=== PATIENT | male | born 1950 | race Caucasian/White ===

== ENCOUNTER → 2018-07-29 | Outpatient (CLI) | payer OTHER ==
--- NOTE | 2018-07-29 13:35 | 2DMMODE ---
[place] [address] 2 D/M-MODE ECHOCARDIOGRAM Name: CORRINAAMBER Room: [facility]#: [id number] Admission: 07/29/18 Attend Phys: Henri Duong, Discharge: Date of : 48 Date of Service: 07/29/18 1335 Report #: [id number] THIS REPORT FOR: //name// APPROVED REPORT Study performed: 07/29/2018 11:12:31 EXAM: Comprehensive 2D, Doppler, and color-flow Echocardiogram Patient Location: Out-Patient Status: routine BSA: 2.11 HR: 106 bpm BP: 130/82 mmHg Other Information Study Quality: Good Indications CAD 2D Dimensions IVSd: 12.22 (7-11mm) LVOT Diam: 20.01 (18-24mm) LVDd: 42.27 mm PWd: 10.08 (7-11mm) Ascending Ao: 36.62 (22-36mm) LVDs: 35.78 (25-40mm) Aortic Root: 29.00 mm Volumes Left Atrial Volume (Systole) LA ESV Index: 18.50 mL/m2 Aortic Valve AoV Peak Angel.: 1.88 m/s AO Peak Gr.: 14.13 mmHg LVOT Max P.96 mmHg AO Mean Gr.: 8.08 mmHg LVOT Mean P.52 mmHg LVOT Max V: 0.86 m/s AO V2 VTI: 32.47 cm LVOT Mean V: 0.57 m/s CHACORTA (VTI): 1.68 cm2 LVOT V1 VTI: 17.35 cm Mitral Valve E/A Ratio: 0.66 MV Decel. Time: 227.91 ms MV E Max Angel.: 0.83 m/s MV PHT: 66.09 ms MVA (PHT): 3.33 [place] [address] 2 D/M-MODE ECHOCARDIOGRAM Name: AMBER HOUSER Room: [facility]#: [id number] Admission: 07/29/18 Attend Phys: Henri Duong, Discharge: Date of : 48 Date of Service: 07/29/18 1335 Report #: [id number] TDI E/Lateral E': 10.38 E/Medial E': 11.86 Medial E' Angel.: 0.07 m/s Lateral E' Angel.: 0.08 m/s Pulmonary Valve PV Peak Angel.: 0.85 m/s PV Peak Gr.: 2.89 mmHg Tricuspid Valve RAP Estimate: 5.00 mmHg TR Peak Gr.: 23.78 mmHg RVSP: 28.78 mmHg PA Pressure: 28.78 mmHg Left Ventricle The left ventricle is normal size. There is normal LV segmental wall motion. There is normal left ventricular wall thickness. Left ventricular systolic function is normal. The left ventricular ejection fraction is within the normal range. LVEF is 55-60%. Grade I - abnormal relaxation pattern. Right Ventricle The right ventricle is normal size. The right ventricular systolic function is normal. Atria The left atrium size is normal. The right atrium size is normal. Aortic Valve Aortic valve is mildly calcified. Trace aortic regurgitation. There is no aortic valvular stenosis. Mitral Valve Mitral valve leaflets are mildly thickened. Mild mitral regurgitation. No evidence of mitral valve stenosis. Tricuspid Valve The tricuspid valve is normal in structure. Mild tricuspid regurgitation. Pulmonic Valve The pulmonary valve is normal in structure. There is no pulmonic [place] [address] 2 D/M-MODE ECHOCARDIOGRAM Name: CORRINAAMBER Room: [facility]#: [id number] Admission: 07/29/18 Attend Phys: Henri Duong, Discharge: Date of : 48 Date of Service: 07/29/18 1335 Report #: [id number] Great Vessels The aortic root is normal in size. IVC is not well visualized. Pericardium There is no pericardial effusion. <Conclusion> LVEF is 55-60%. Aortic valve is mildly calcified. <ELECTRONICALLY SIGNED> By: Mark Martell MD, FAC 07/29/18 1335 1335 1335 Mark Martell MD, [facility] /INF
--- NOTE | 2018-07-29 17:13 | CARDNUC ---
[place] [address] CARDIAC NUCLEAR IMAGING REPORT Name: CORRINAAMBER G Room: [facility]#: [id number] Admission: 07/29/18 Attend Phys: Henri Duong, Discharge: Date of : 48 Date of Service: 07/29/18 1712 Report #: [id number] THIS REPORT FOR: //name// APPROVED REPORT Imaging Protocol: Rest Tc-99m/Stress Tc-99m 1 day Study performed: 07/29/2018 13:00:00 Indication: Chest pain, Dyspnea Patient Location: Out-Patient Stress Tech: Cuca Llamas Stress Nurse: Ana Cordon RN NM Tech:PARESH Rangel Ht: 6 ft 0 in Wt: 195 lbs BSA: 2.11 m2 BMI: 26.44 Medical History Medical History: Angina, SOB, CAD s/p [place], CAD s/p CABG, CAD s/p stent, Current Smoker, Fatigue, HTN, Hyperlipidemia. Medications: Metoprolol, ASA 81 mg, Atorvastatin, MG. Allergies: No known drug allergies Cardiac Risk Factors: Age, Current Smoker, HTN, Hyperlipidemia, SOB. Previous Cardiac Procedures: CABG, Myocardial infarction, PCI Pretest Chest Pain Characteristics: No chest pain Exercise History: Sedentary Physical Disabilities: Arthritis, weak legs, SOA. Meds Held (24 hrs): Metoprolol Resting Data Rest SPECT myocardial perfusion imaging was performed in supine position 30 minutes following the intravenous injection of 11.9 mCi of Tc-99m Sestamibi. Time of rest injection: 1340 Date: 07/29/2018 Time of rest imagin The images were gated to evaluate regional wall motion and calculate left ventricular ejection fraction. Administration Route: IV Administration Site: Left AC Pharmacologic Stress Pharmacologic stress test was performed by injecting Regadenoson 0.4 [place] [address] CARDIAC NUCLEAR IMAGING REPORT Name: AMBER HOUSER Room: [facility]#: [id number] Admission: 07/29/18 Attend Phys: Henri Duong, Discharge: Date of : 48 Date of Service: 07/29/18 1712 Report #: [id number] 10-15 seconds immediately followed by the intravenous injection of 33.2 mCi of Tc-99m Sestamibi. Time of stress injection: 1520 Time of stress imagin Administration Route: IV Administration Site: Left AC Gated Stress SPECT was performed 40 minutes after stress injection. The images were gated to evaluate regional wall motion and calculate left ventricular ejection fraction. Prone imaging was performed. Stress Test Details Stress Test: Pharmacologic stress testing performed using 0.4 mg of regadenoson per 5 mL given IV over 10 seconds. Reason for pharmacologic stress test: physical limitation, arthritis, weak legs.. 60 mg caffeine given for headache, dizziness, Tachycardia.. HR Max Heart Rate (APMHR): 151 bpm Resting HR: 97 bpm Target HR (85% APMHR): 128 bpm Max HR Achieved: 138 bpm % of APMHR: 91 Recovery HR: 125 bpm HR response to stress: Normal HR response to stress BP Resting BP: 124/84 mmHg Max BP: 131/88 mmHg Recovery BP: 124/86 mmHg BP response to stress: Normal blood pressure response to stress. ECG Resting ECG: nsr Stress ECG: nsr pvcs ST Change: negative Arrhythmia: negative Recovery ECG: nsr Clinical Reason for Termination: Completed protocol Stress Symptoms: Headache, Lightheaded, difficulty getting HR below 120's BPM. Exercise duration: 0 min 0 sec Exercise capacity: 1.00 [place] [address] CARDIAC NUCLEAR IMAGING REPORT Name: AMBER HOUSER Room: [facility]#: [id number] Admission: 07/29/18 Attend Phys: Henri Duong, Discharge: Date of : 48 Date of Service: 07/29/18 1712 Report #: [id number] Nurse Comments 68 year old male presented with recented CP/SOA/Tachycardia. Patient stated his arthritis limited him from walking with any speed or incline. Patient tolerated sitting Lexiscan well with minimal symptoms. HR in recovery maintained in the 120's BPM. 60 MG IV caffeine administered at 14:00 into recovery for help with headache, SOA and heartrate. Heartrate continued in 120's. Dr. Martell notified of Tachycardia. Dr. Martell cleared patient to go to Nuclear Medicine for images and to resume his Metoprolol as soon as he gets home. Patient escorted by staff to Nuclear Medicine for images. Patient stable with no complaints at that time. Stress ECG Conclusion negative Study Quality Study: Good Artifact: Mild Increased GI uptake Lung Uptake: Normal Perfusion STRESS SPECT images show a small mild intensity inferior defect which is noted to be fixed when compared to the SPECT rest images. There is uniform uptake of tracer in all other segments. The prone set shows normalization of the inferior defect indicating it is likely artifact. No reversible defects are seen. Wall Motion normal all motion Nuclear Conclusion ECG Findings: negative for ischemia Clinical Findings: negative for ischemia Nuclear Findings: negative for ischemia Exercise Capacity: not assessed Left Ventricular Function: normal Risk Study: low Nuclear stress test negative for ischemia or infarct. The inferior defect [place] [address] CARDIAC NUCLEAR IMAGING REPORT Name: AMBER HOUSER Room: [facility]#: [id number] Admission: 07/29/18 Attend Phys: Henri Duong, Discharge: Date of : 48 Date of Service: 07/29/18 1712 Report #: [id number] <Conclusion> negative <ELECTRONICALLY SIGNED> By: Karan Muller MD, FACC 07/29/181711 11 11 Karan Muller MD, FACC /INF
== END ==
LOC: M.NUC 07-10 08:00 → M.CRD 11:03 → M.NUC 14:00
DX: I25.10 Atherosclerotic heart disease of native coronary artery without angina pectoris (principal); R06.09 Other forms of dyspnea

== ENCOUNTER 2020-03-05 14:08 | Inpatient (IN) | payer OTHER ==
[~2020-03-05] VITALS: Ht 182.9 cm; Wt 87.5 kg
--- NOTE | ~2020-03-05 | OP ---
[address] [address] OPERATIVE REPORT Name: CORRINAAMBER G Room: [address]#: [id number] Admission: 03/05/20 Attend Phys: Dk Toussaint MD Discharge: 03/09/20 Date of : 48 Report #: [id number] THIS REPORT FOR: //name// cc: Jason Barros MD, Anthony MD ~ CC: Jason Toussaint DICTATED BY: Nick Potter DO DATE OF SERVICE: 03/05/2020 Nick Potter DO, PGY4, dictating for Hernan Fernandes DO PREOPERATIVE DIAGNOSIS: Strangulated ventral hernia. POSTOPERATIVE DIAGNOSIS: Strangulated ventral hernia with high-grade small bowel obstruction. PRIMARY SURGEON: Hernan Fernandes DO CO-SURGEON: Nick Potter DO, PGY4 REFUGE WORKER: None. OPERATION PERFORMED: Ventral hernia repair with mesh. ANESTHESIA: General and local. ESTIMATED BLOOD LOSS: 20 mL. SPECIMEN: Hernia sac and omentum. COMPLICATIONS: None. INDICATIONS FOR PROCEDURE: The patient is a pleasant 70-year-old male with past history of coronary artery disease, status post multiple cardiac stents, CABG x 4, COPD, emphysema with pulmonary bullae and alcohol abuse. The patient has a known to him incisional hernia just superior to the umbilicus after having laparoscopic cholecystectomy years ago, reported since Sunday for the past 3 days of severe nausea and vomiting that has been intractable and he has been unable to keep down any p.o. intake. Hernia has always been incarcerated, but has been more firm and swollen. He came in for further evaluation and was found to have a loop of small bowel contained within the ventral hernia causing with high-grade obstruction with concern for strangulation. We recommended proceeding to the OR for emergent hernia repair [place] [address] OPERATIVE REPORT Name: AMBER HOUSER Room: [address] IN [facility]#: [id number] Admission: 03/05/20 Attend Phys: Dk Toussaint MD Discharge: 03/09/20 Date of : 48 Report #: [id number] possible bowel resection. Full discussion of procedure, alternatives, risks and possible complications were discussed, include but not limited to bleeding, infection, postoperative pain, scarring, hernia recurrence, mesh complications, injury to other underlying abdominal organs, mesh removal, additional surgery, difficult extubation, prolonged intubation in the ICU for wound healing, anesthesia risks, cardiopulmonary arrest, and even as well as general anesthesia risks. The patient voiced understanding of these risks and agreed to proceed with surgery. OPERATIVE TECHNIQUE: The patient was again seen and examined in the preoperative holding. Fully informed written consent was obtained. Preoperative antibiotics, 2 g Ancef were given. The patient was then transported to the operating room suite and placed on the operating table in a supine position. At this time, Anesthesia induced general anesthesia via endotracheal intubation. This was successful. Arms were outstretched on the arm board. All extremities were padded and protected. Safety strap was placed across the patient's lap. Grounding pad was placed in the right lateral thigh. Nicolas catheter was placed. All extremities and joints were padded and protected. Upper extremity Gita Hugger was placed across the patient's chest. He was then prepped and draped using standard sterile fashion after his abdominal hair was trimmed with an elective vasquez. Once the 30 minutes was allowed for the chlorhexidine to dry, the patient was prepped and draped and timeout was performed prior to the onset of the procedure. All present were in agreement. We began by making a vertical paramedian incision just left of midline over the patient's previous laparoscopic incisional scar. We dissected down through dermal and subcutaneous tissue using electrocautery and blunt graspers until we reached the hernia sac. The hernia sac was then dissected out circumferentially and freed from the subcutaneous and fascial attachments. Once the hernia sac was fully dissected out as were the fascial edges, a relaxing incision was made at the superior aspect of the hernia or the cephalad portion. After the relaxing fascial incision was made, Metzenbaum scissors were used to enter into the base of the hernia sac. The hernia sac was then divided in half. There was noted to be strangulated, noncompromised bowel. The bowel was dusky dark red in appearance, but quickly perked up after the omental and fascial band causing obstruction was released. We observed the bowel for several minutes, which became very pink with some hypoactive peristalsis. The bowel was then placed and reduced back into the abdomen. There was a small portion of omentum at the caudal aspect of the hernia attached to the hernia sac that was compromised and was black in appearance. This was transected with the hernia sac and sent to pathology. The fascial edges were grasped with the bilateral Kochers; left and right, like right sides and a 6.4-cm Ventrio ST Hernia mesh was opened on the back table and placed into the abdomen and with the strap in a vertical orientation. The mesh was then sewn in place in the 4 corners using 0 Prolene. Once the mesh was sewn in place, the fascial defect was closed incorporating mesh using interrupted [id number] 0 Prolene sutures. Once the fascia was completely closed, the subcutaneous tissue [place] [address] OPERATIVE REPORT Name: CORRINAAMBER Room: [address]#: [id number] Admission: 03/05/20 Attend Phys: Dk Toussaint MD Discharge: 03/09/20 Date of : 48 Report #: [id number] normal saline and dried. A layered closure was then performed of the subcutaneous and deep dermal layers using 3-0 interrupted Vicryl and the skin was closed using a running subcuticular 4-0 Monocryl. A 30 mL of 0.5% Marcaine were injected for local anesthetic. Dermabond skin glue was then placed for dressing. The patient was extubated in the OR. Abdominal binder was placed and he was transported to the PACU in stable condition. After brief recovery from the anesthesia, he will be admitted to the floor for ongoing care. Of note, Anesthesia placed an NG tube towards the conclusion of the operation with almost 250 mL of gastric fluid drained into the canister. He will continue NG tube to low intermittent suction, pending resolution of postoperative expected ileus. By: 2225 2301Adonovan Fernandes DO /nt
[2020-03-05 14:21] VITALS: BP 129/99
[2020-03-05 14:45] LABS: ABSOLUTE BASOPHILS 0.1 thou/uL (0.0-0.2); ABSOLUTE LYMPHOCYTES 1.3 thou/uL (0.8-5.3); ABSOLUTE MONOCYTES 1.6 thou/uL (0.0-1.2); ABSOLUTE NEUTROPHILS 15.6 thou/uL (1.6-8.1); BASOPHILS 0.8 %; HEMATOCRIT 52.3 % (42.0-52.0); HEMOGLOBIN 18.3 gm/dL (14.0-18.0); LYMPHOCYTES 7.1 %; MCH 33.3 pg (26.0-34.0); MCHC 34.9 g/dL (28.0-37.0); MCV 95.3 fL (80.0-100.0); MONOCYTES 8.5 %; MPV 9.4 fl. (7.2-11.1); NUCLEATED RBCS 0 /100WBC; PLATELET COUNT* 325 thou/uL (150-400); POLYS 83.6 %; RBC 5.49 mil/uL (4.50-6.00); RDW-CV 13.6 % (10.5-14.5); WBC 18.7 thou/uL (4.0-11.0)
[2020-03-05 14:49] LABS: CALCIUM 9.5 mg/dL (8.5-10.1); POTASSIUM 4.1 mmol/L (3.5-5.1)
[2020-03-05 14:51] LABS: APTT 26.4 Seconds (25.0-31.3); INR 1.1; PROTIME 11.4 Seconds (9.20-11.50)
[2020-03-05 14:54] LABS: ALBUMIN 4.4 g/dL (3.4-5.0); TOTAL BILIRUBIN 1.1 mg/dL (<0.1-1.0); TOTAL PROTEIN 9.5 g/dL (6.4-8.2)
--- NOTE | 2020-03-05 15:07 | EKG ---
[place] [address] ELECTROCARDIOGRAM REPORT Name: AMBER HOUSER Room: [facility]#: [id number] Admission: 03/05/20 Attend Phys: Discharge: Date of : 48 Date of Service: 03/05/20 1419 Report #: [id number] THIS REPORT FOR: //name// 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1950 Requested By: Rocky Marie Order Number: [id number] MD: Mark Martell Measurements Intervals [place] Rate: 170 P: 11 [place]: 93 QRS: -23 QRSD: 94 T: 104 QT: 303 QTc: 510 Interpretive Statements Supraventricular tachycardia Borderline left axis deviation Abnormal R-wave progression, early transition Repolarization abnormality, prob rate related No previous ECG available for comparison Electronically Signed On 03-05-2020 15:07:50 CDT by Mark Martell [email or web address] <ELECTRONICALLY SIGNED> By: Mark Martell MD, [facility] 03/05/20 1507 1419 1419 Mark Martell MD, [facility] /EPI
[2020-03-05 20:17] VITALS: BP 124/81
[2020-03-05 23:45] VITALS: BP 103/70
[2020-03-06 04:30] VITALS: BP 101/70
[2020-03-06 04:56] LABS: HEMATOCRIT 43.3 % (42.0-52.0); MCHC 34.3 g/dL (28.0-37.0); MCV 96.5 fL (80.0-100.0); MPV 9.5 fl. (7.2-11.1); NUCLEATED RBCS 0 /100WBC; RBC 4.49 mil/uL (4.50-6.00); RDW-CV 13.3 % (10.5-14.5); WBC 12.9 thou/uL (4.0-11.0)
[2020-03-06 05:13] LABS: HEMOGLOBIN 14.8 gm/dL (14.0-18.0); PLATELET COUNT* 240 thou/uL (150-400)
[2020-03-06 05:27] LABS: ALBUMIN 3.2 g/dL (3.4-5.0); CALCIUM 7.6 mg/dL (8.5-10.1); CREATININE 1.6 mg/dL (0.6-1.3); MAGNESIUM 1.4 mg/dL (1.8-2.4); POTASSIUM 3.8 mmol/L (3.5-5.1); TOTAL BILIRUBIN 0.8 mg/dL (<0.1-1.0); TOTAL PROTEIN 7.1 g/dL (6.4-8.2)
[2020-03-06 06:57] LABS: ABSOLUTE LYMPHOCYTES 0.5 thou/uL (0.8-5.3); ABSOLUTE MONOCYTES 1.4 thou/uL (0.0-1.2)
[2020-03-06 06:58] LABS: PLATELET ESTIMATE ADEQUATE
[2020-03-06 08:00] VITALS: BP 124/77
[2020-03-06 20:00] VITALS: BP 141/90
[2020-03-06] MEDS ORDERED: KAPSPARGO SPRIN25 MG PO (21:32)
[2020-03-06] MEDS ORDERED: ASA81BEC PO (21:33)
[2020-03-06] MEDS ORDERED: LIPITOR40 MG PO (21:34)
[2020-03-06] MEDS ORDERED: OMEPRAZOLE40 MG PO (21:35)
[2020-03-06] MEDS ORDERED: FLOMAX0.4 MG PO (21:36)
[2020-03-06] MEDS ORDERED: ANORO ELLIPTA1 EACH IH (21:37)
[2020-03-07] VITALS (7 sets, daily range): BP systolic 106–172; BP diastolic 73–87
[2020-03-07 05:54] LABS: ABSOLUTE LYMPHOCYTES 0.7 thou/uL (0.8-5.3); ABSOLUTE MONOCYTES 1.2 thou/uL (0.0-1.2); ABSOLUTE NEUTROPHILS 5.6 thou/uL (1.6-8.1); BASOPHILS 0.1 %; EOSINOPHILS 0.1 %; HEMATOCRIT 42.2 % (42.0-52.0); HEMOGLOBIN 14.6 gm/dL (14.0-18.0); LYMPHOCYTES 9.5 %; MCH 33.5 pg (26.0-34.0); MCHC 34.6 g/dL (28.0-37.0); MCV 96.7 fL (80.0-100.0); MONOCYTES 16.2 %; MPV 9.7 fl. (7.2-11.1); NUCLEATED RBCS 0 /100WBC; PLATELET COUNT* 214 thou/uL (150-400); POLYS 74.1 %; RBC 4.36 mil/uL (4.50-6.00); RDW-CV 13.3 % (10.5-14.5); WBC 7.6 thou/uL (4.0-11.0)
[2020-03-07 06:09] LABS: CREATININE 1.3 mg/dL (0.6-1.3); POTASSIUM 3.1 mmol/L (3.5-5.1); TOTAL BILIRUBIN 1.2 mg/dL (<0.1-1.0)
[2020-03-08] VITALS: BP 120/76
[2020-03-08 04:00] VITALS: BP 130/88
[2020-03-08 04:49] LABS: HEMATOCRIT 38.8 % (42.0-52.0); HEMOGLOBIN 13.6 gm/dL (14.0-18.0); MCH 33.6 pg (26.0-34.0); MCV 95.8 fL (80.0-100.0); MPV 9.9 fl. (7.2-11.1); RBC 4.05 mil/uL (4.50-6.00); RDW-CV 13.2 % (10.5-14.5); WBC 7.4 thou/uL (4.0-11.0)
[2020-03-08 05:11] LABS: ALBUMIN 2.8 g/dL (3.4-5.0); CALCIUM 7.1 mg/dL (8.5-10.1); MAGNESIUM 1.6 mg/dL (1.8-2.4); PHOSPHORUS* 0.9 mg/dL (2.5-4.9); POTASSIUM 3.3 mmol/L (3.5-5.1); TOTAL BILIRUBIN 1.4 mg/dL (<0.1-1.0); TOTAL PROTEIN 6.7 g/dL (6.4-8.2)
[2020-03-08 08:00] VITALS: BP 129/90
[2020-03-08 15:21] VITALS: BP 125/86
--- NOTE | 2020-03-08 17:37 | EKG ---
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1950 Requested By: Dk Toussaint Order Number: [id number] Reading MD: Henri Duong Measurements Intervals [place] Rate: 93 P: 35 [place]: 130 QRS: -18 QRSD: 98 T: 171 QT: 451 QTc: 562 Interpretive Statements Sinus tachycardia Atrial premature complexes Left axis deviation Abnrm T, consider ischemia, anterolateral lds Prolonged QT interval Compared to ECG 03/05/2020 14:19:10 Atrial premature complex(es) now present RSR' in V1 or V2 now present Possible ischemia now present Prolonged QT interval now present Supraventricular tachycardia no longer present Early repolarization no longer present Electronically Signed On 03-08-2020 17:36:54 CDT by Henri Duong [email or web address] <ELECTRONICALLY SIGNED> By: Henri Duong MD, [facility] 03/08/20 1736 8 8 Henri Duong MD, [facility] /EPI
[2020-03-08 18:57] VITALS: BP 117/79
[2020-03-08 20:00] VITALS: BP 136/91
[2020-03-09] VITALS: BP 119/77
[2020-03-09 04:00] VITALS: BP 127/79
[2020-03-09 04:59] LABS: HEMATOCRIT 40.3 % (42.0-52.0); HEMOGLOBIN 14.3 gm/dL (14.0-18.0); MCHC 35.5 g/dL (28.0-37.0); MPV 9.7 fl. (7.2-11.1); RBC 4.2 mil/uL (4.50-6.00); RDW-CV 13.4 % (10.5-14.5); WBC 9.8 thou/uL (4.0-11.0)
[2020-03-09 05:26] LABS: ALBUMIN 2.9 g/dL (3.4-5.0); CALCIUM 7.8 mg/dL (8.5-10.1); TOTAL BILIRUBIN 1.2 mg/dL (<0.1-1.0); TOTAL PROTEIN 7.3 g/dL (6.4-8.2)
[2020-03-09 05:28] LABS: POTASSIUM 3.4 mmol/L (3.5-5.1)
[2020-03-09 07:30] VITALS: BP 120/81
[2020-03-09] MEDS ORDERED: OXYCODONE HCL 55 MG PO ×2 (11:17→11:18)
[2020-03-09] MEDS ORDERED: AUGMENTIN 875-1 EACH PO (11:43)
[2020-03-09 12:00] VITALS: BP 158/88
[2020-03-09 14:01] VITALS: BP 158/88
--- NOTE | 2020-03-09 16:01 | EKG ---
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1950 Requested By: Noel Haile Order Number: [id number] Rose Mary MD: Adolph Puente Measurements Intervals [place] Rate: 94 P: 39 MT: 123 QRS: -12 QRSD: 95 T: 15 QT: 374 QTc: 468 Interpretive Statements Sinus rhythm Atrial premature complex Borderline repolarization abnormality Compared to ECG 03/06/2020 02:59:01 Possible ischemia no longer present Prolonged QT interval no longer present Electronically Signed On 03-09-2020 16:00:59 CDT by Adolph Puente [email or web address] <ELECTRONICALLY SIGNED> By: Adolph Puente MD, FACC 03/09/20 1600 1345 1345 Adolph Puente MD, FAC /EPI
--- NOTE | 2020-03-10 11:08 | PATH ---
[address] [address] PATHOLOGY RPT PROCEDURE Name: RADAMES SMITH Room: [address] IN ..#: [id number] Admission: 03/05/20 Date of : 48 Discharge: 03/09/20 Report #: [id number] Path Case #: [id number] [facility] Accession Number: [id number] . 01 Material submitted: . hernia - HERNIA SAC AND OMENTUM . 01 Clinical history: . SBO, VENTRAL HERNIA WITH OBSTRUCTION, STRANGULATED HERNIA, COMPLETE BOWEL OBSTRUCTION . 02 Diagnosis: Hernia sac and omentum: - Benign mesothelial-lined fibromembranous/fibrofatty tissue and benign omental fat with fresh hemorrhage. . (BRANDY:eugenia; 03/09/2020) [facility] 03/09/2020 1708 Local . 02 Electronically signed: . Nahum Massey MD, Pathologist NPI- [id number] . 01 Gross description: . The specimen is received in formalin, labeled "Radames Smith, hernia sac and omentum". Received is a segment of fibromembranous tissue measuring 8.1 x 3.8 x 1.1 cm in greatest dimensions. No distinct nodules or lesions are noted grossly. The specimen is submitted representatively in cassette A1. . Also received within the specimen container is a segment of yellow-blanc omentum measuring 7.9 x 3.2 x 0.7 cm in greatest dimensions. No distinct nodules or lesions are noted grossly. The specimen is submitted representatively in cassette A2. (CAA; 03/08/2020) [facility]/QAC 03/08/2020 1624 Local . 02 Pathologist provided ICD-10: K43.9 . 02 CPT . 610240, 548618 Specimen Comment: A courtesy copy of this report has been sent to [phone] Specimen Comment: [id number], Specimen Comment: Report sent to ,DR GARRISON / DR BARRAGAN Performed at: [address] [place] [address] PATHOLOGY RPT PROCEDURE Name: RADAMES SMITH Room: [address] IN M.R.#: [id number] Admission: 03/05/20 Date of : 48 Discharge: 03/09/20 Report #: [id number] Path Case #: [id number] [address] [facility] [address], [place]ae [place], [place] [id number] MD Cameron Chambers MD Phone: [phone] Performed at: 02 [facility] [address], [place] [id number] MD Nahum Massey MD Phone: [phone]
== END 2020-03-09 14:25 | disposition home or self-care (01) | DRG 353 ==
LOC: M.ERS 14:08 → M.2W 17:02 → M.TBA-ER 17:02 → M.2W 23:51
PROVIDERS: Family Medicine; Surgery; ADMIT Internal Medicine; ATTEND Internal Medicine
PROC: 0WUF0JZ Supplement Abdominal Wall with Synthetic Substitute, Open Approach (ICD-10-PCS; principal; 2020-03-05)
PROC: 0D9670Z Drainage of Stomach with Drainage Device, Via Natural or Artificial Opening (ICD-10-PCS; principal; 2020-03-05)
DX: K43.6 Other and unspecified ventral hernia with obstruction, without gangrene (principal); N17.0 Acute kidney failure with tubular necrosis; R65.11 Systemic inflammatory response syndrome (SIRS) of non-infectious origin with acute organ dysfunction; J96.11 Chronic respiratory failure with hypoxia; I47.1 Supraventricular tachycardia; F17.210 Nicotine dependence, cigarettes, uncomplicated; F10.10 Alcohol abuse, uncomplicated; E78.5 Hyperlipidemia, unspecified; I10 Essential (primary) hypertension; Z20.828 Contact with and (suspected) exposure to other viral communicable diseases; E86.1 Hypovolemia; E87.6 Hypokalemia; J43.9 Emphysema, unspecified; I25.10 Atherosclerotic heart disease of native coronary artery without angina pectoris; Z95.1 Presence of aortocoronary bypass graft; Z95.5 Presence of coronary angioplasty implant and graft; Z90.49 Acquired absence of other specified parts of digestive tract

== ENCOUNTER → 2020-07-13 | Outpatient (CLI) | payer OTHER ==
[~2020-07-13] MED LIST: ANORO ELLIPTA1 EACH IH; ASA81BEC PO; AUGMENTIN 875-1 EACH PO; CENTRUM SILVER1 EAC4 PO; FLECAINIDE ACE100 MG PO; FLOMAX0.4 MG PO; KAPSPARGO SPRIN25 MG PO; LIPITOR40 MG PO; METOPROLOL SUC200 MG PO; NITROGLYCERIN0.4 MG SUBLING; OMEPRAZOLE40 MG PO; OXYCODONE HCL 55 MG PO; TYLENOL325 M1 PO; VENTOLIN HFA 1818 GM INH
[2020-07-13 12:56] LABS: HEMATOCRIT 44.1 % (42.0-52.0); HEMOGLOBIN 15.2 gm/dL (14.0-18.0); MCH 31.9 pg (26.0-34.0); MCHC 34.4 g/dL (28.0-37.0); MCV 92.6 fL (80.0-100.0); MPV 8.4 fl. (7.2-11.1); RBC 4.76 mil/uL (4.50-6.00); RDW-CV 14.1 % (10.5-14.5); WBC 7.7 thou/uL (4.0-11.0)
[2020-07-13 13:03] LABS: CALCIUM 9.8 mg/dL (8.5-10.1); CREATININE 1.5 mg/dL (0.6-1.3); POTASSIUM 4.8 mmol/L (3.5-5.1)
== END ==
LOC: M.LAB 07-12 14:17
PROVIDERS: ATTEND Surgery
DX: Z01.812 Encounter for preprocedural laboratory examination (principal); Z20.822 Contact with and (suspected) exposure to COVID-19; K40.90 Unilateral inguinal hernia, without obstruction or gangrene, not specified as recurrent

== ENCOUNTER 2020-07-20 08:33 | Inpatient (IN) | payer OTHER ==
[~2020-07-20] VITALS: Ht 182.9 cm; Wt 92.3 kg
--- NOTE | ~2020-07-20 | OP ---
[address] [address] OPERATIVE REPORT Name: AMBER HOUSER Room: [address] M.R.#: [id number] Admission: 07/20/20 Attend Phys: Hernan Fernandes DO Discharge: Date of : 48 Report #: [id number] THIS REPORT FOR: cc: Jason Barros MD, Anthony MD ~ Hernan Fernandes DO DICTATED BY: Feliberto Page DO DATE OF SERVICE: 07/20/2020 PRIMARY CARE PHYSICIAN: Jason Barros MD PREOPERATIVE DIAGNOSIS: Recurrent ventral hernia. POSTOPERATIVE DIAGNOSIS: Recurrent ventral hernia. SURGEON: Hernan Fernandes DO CO-SURGEON: Feliberto Page DO, PGY-4. CLINICAL CODER: Lauren Farfan MS3. OPERATION PERFORMED: Recurrent ventral hernia repair with mesh. ANESTHESIA: General. ESTIMATED BLOOD LOSS: 50 mL. SPECIMENS REMOVED: Hernia sac. IMPLANTS: 11 x [address] mesh. HISTORY OF PRESENT ILLNESS: The patient is a 70-year-old male with history of ventral hernia repair after a few years. He noticed a recurrent bulge in this area. We discussed the need for repair. Risks, benefits, and alternatives discussed at length and agreed to proceed with surgery. DESCRIPTION OF PROCEDURE: After consent was obtained, the patient was taken to the operating room and placed in the supine position. SCDs applied to bilateral lower extremities, safety belt placed across the patient's waist. Two grams Ancef given for surgical prophylaxis. General endotracheal anesthesia was administered without any complication. The patient's abdomen was prepped and draped in standard sterile fashion. Timeout was performed to confirm the patient and procedure. A 10 blade scalpel was used to make an elliptical incision around his previous incision. Previous scar was excised. [address] [address] OPERATIVE REPORT Name: CORRINAAMBER Alice Room: [address] Obdulio Bocanegra#: [id number] Admission: 07/20/20 Attend Phys: Hernan Fernandes DO Discharge: Date of : 48 Report #: [id number] Electrocautery was used for hemostasis and dissected down to the level of hernia sac once the hernia sac was encountered, we elected to enter the hernia sac as this defect was quite large. The hernia sac was dissected off the edges of the fascia using electrocautery. Fascial edges were cleared off from subcutaneous tissue using electrocautery, once our fascial edges were completely clear, hernia defect measured about 5 x 5 cm, we then elected to place an 11 x [address] mesh. This was placed into the abdomen. We elected to close the fascia in a horizontal fashion. The mesh was secured in all cardinal points using stitches of 0 Prolene. The mesh was then circumferentially tacked to the underside of the fascia. The fascia was then closed over top of the mesh using a running 0 Prolene, taking care to incorporate the mesh with each bite, once the hernia defect was completely repaired, subcutaneous tissue was carefully closed down in a layered closure after we placed a 15-Israeli Yoni drain in the subcutaneous tissue. Skin was reapproximated with running 4-0 Monocryl. All instrument, needle and sponge counts were correct x 2 at the end of the case. The patient tolerated the procedure well and was awoken from general anesthesia and transferred to PACU in stable condition. By: 1305 1734Adonovan Fernandes DO /sujata
[2020-07-20 17:08] VITALS: BP 114/65
[2020-07-20 19:30] VITALS: BP 129/87
[2020-07-21] VITALS: BP 139/86
--- NOTE | 2020-07-21 02:19 | NUR ---
PATIENT HAS REMAINED ALERT AND ORIENTED X 4 THROUGHOUT THE SHIFT AND RESTING QUIETLY ON HOURLY ROUNDS. HAS NOT GOTTEN OUT OF BED THIS SHIFT. ABLE TO MOVE SELF IN BED. DRESSING TO ABDOMEN HAS REMAINED CLEAN AND DRY WITH ABDOMINAL BINDER INTACT. Q2H DEEP BREATHING WITH COUGH ENCOURAGED WITH PILLOW ABDOMINAL SPLINT. KANG DRAIN WITH MIN AMOUNTS SEROSANGUINEOUS DRAINAGE. PATIENT'S 02 NEEDS TO MAINTAIN 02 SAT >/= 92% AT 6L/MIN. CONTINUOUS CAPNOGRAPHY. MEDICATED FOR PAIN X 3 OF THIS WRITING TO GOOD EFFECT. VOIDS PER URINAL IN ADEQUATE AMOUNTS. ICE CHIPS AND WATER WITHOUT NAUSEA. CONTINUE TO MONITOR.
[2020-07-21 04:00] VITALS: BP 139/91
--- NOTE | 2020-07-21 06:59 | NUR ---
PATIENT CONTINUES TO REQUIRE 6L/MIN 02 TO KEEP O2 SATS >92%. SURGERY HAS SEEN PATIENT AND ENCOURAGING IS. NO OTHER CHANGES FROM EARLIER END OF SHIFT NOTE.
[2020-07-21 08:00] VITALS: BP 139/91
--- NOTE | 2020-07-21 08:46 | NUR ---
CM SPOKE TO THE PT TO COMPLETE CM ASSESSMENT. PT A&O, NORMALLY INDEPENDENT WITH ADL'S, AND DRIVES. PT USES 0 DME. PT HAS 0 HX OF HH OR SNF. PT CURRENTLY ON 4L OXYGEN, AND DOES NOT HAVE HOME O2. CM WILL REMAIN AVAILABLE TO ASSIST AND FOLLOW NEEDED.
[2020-07-21 11:39] VITALS: BP 132/77
[2020-07-21 15:26] VITALS: BP 106/79
[2020-07-21 20:20] VITALS: BP 115/73
[2020-07-22 01:17] VITALS: BP 121/75
[2020-07-22 04:39] VITALS: BP 158/78
[2020-07-22 08:43] VITALS: BP 128/79
--- NOTE | 2020-07-22 09:44 | NUR ---
PATIENT HAS SLEPT OFF AND ON DURING THE NIGHT, BUT IS VERY SOA UPON EXERTION. VSS ON 6L 02 VIA NASAL CANNULA. LUNGS ARE VERY COARSE, WHEEZY AND WET SOUNDING IN THE AM. 02 SATURATION DROPPED FOR A BIT AND RESPIRATORY CALLED AND NOTIFIED AND NEW ORDER GIVEN TO GIVE LASIX IV X 1. PATIENT BREATHING SOMEWHAT MORE COMFORTABLY BUT STILL C/O OF SOME SOA, BUT 02 SATURATION IS SHOWING IN 94% TO 95% ON 6L 02 VIA NASAL CANNULA. PATIENT PLACED ON CONTINUOUS PULSE OXIMETRY. PATIENT COUGHING UP THICK, YELLOW SPUTUM. MEDICATIONS GIVEN ORDERED AND CHARTED. IV IN RIGHT FOREARM-SL. KANG DRAIN TO RIGHT QUADRANT WITH MINIMAL DRAINAGE. DRESSING TO ABDOMEN IS C/D/I AND BINDER IN PLACE. PATIENT URINATING ADEQUATELY. PATIENT INSTRUCTED TO USE CALL LIGHT WHEN NEEDING ASSISTANCE. HOURLY ROUNDS MADE. WILL CONTINUE WITH PLAN OF CARE AND NURSING TO MONITOR.
--- NOTE | 2020-07-22 11:51 | NUR ---
CM INFORMED DURING PRIME ROUNDING OF THE PLAN OF CARE FOR THE PT. PT REMAINS ON 6L O2 VIA NC. PLAN TO ATTEMPT TO WEAN PT O2 NEEDS. PT MAY NEED HOME OXYGEN AT D/C AND WILL NEED R.T. ST AND EXERCISE TO DETERMINE THIS. CM WILL REMAIN AVAILABLE TO ASSIST AND FOLLOW NEEDED.
[2020-07-22 12:01] VITALS: BP 110/66
--- NOTE | 2020-07-22 12:42 | NUR ---
Nutrition: Pt admitted for incisional hernia repair. Consult for nutrition education. Pt stated, "I eat whatever I want." He said his has "all kinds of problems," DM, CHF. He said she has been through nutrition educ and "has all the paperwork." He said he won't follow a low carb diet. He is refusing education at this time. Limited adherance to nutrition-related recommendations R/T diet AEB pt self report. No other nutrition interventions. Consider mild risk.
[2020-07-22 16:14] VITALS: BP 115/72
[2020-07-22 20:30] VITALS: BP 116/62
[2020-07-23 01:30] VITALS: BP 121/77
[2020-07-23 05:02] VITALS: BP 125/77
[2020-07-23 08:00] VITALS: BP 127/85
--- NOTE | 2020-07-23 10:08 | PATH ---
[address] [address] PATHOLOGY RPT PROCEDURE Name: RADAMES SMITH Room: [address] IN .R.#: [id number] Admission: 07/21/20 Date of : 48 Discharge: Report #: [id number] Path Case #: [id number] [facility] Accession Number: [id number] . 01 Material submitted: . hernia - HERNIA SAC . 01 Clinical history: . INCISIONAL HERNIA . 02 Diagnosis: Hernia sac: - Benign fibrofatty/fibromembranous tissue including entrapped mesh, with foreign body-type granulomatous response and fibrosis. (BRANDY/db; 07/22/2020) LBQ 07/22/2020 1550 Local . 02 Electronically signed: . Nahum Massey MD, Pathologist NPI- [id number] . 01 Gross description: . Received in formalin labeled "Radames Smith, hernia sac" are 2 irregular, blanc-yellow lobular portions of fibroadipose tissue with attached membranous blanc-pink soft tissue measuring in aggregate 9.9 x 7.1 x 3.4 cm. Sectioning of the smaller portion of soft tissue reveals blanc-white cut surface with admixed meshlike material. The larger portion of fibroadipose with membranous tissue is sectioned to reveal lobular, blanc-yellow cut surface with a rim of blanc-white fibrous tissue. [place] sections of the specimen are submitted in cassettes A1-A2.([facility]; 07/21/2020) GZA/GZA 07/22/2020 1548 Local . 02 Pathologist provided ICD-10: K43.2 . 02 CPT . [id number] Specimen Comment: A courtesy copy of this report has been sent to [phone] Specimen Comment: [id number] Specimen Comment: Report sent to / DR GARRISON Performed at: [address] [id number] MD Santhosh Landaverde MD Phone: [phone] Performed at: 02 [place] [address] PATHOLOGY RPT PROCEDURE Name: RADAMES SMITH Room: [address] ADM IN M.R.#: [id number] Admission: 07/21/20 Date of : 48 Discharge: Report #: [id number] Path Case #: [id number] [address] SELENE Newsome [id number] MD Nahum Massey MD Phone: [phone]
[2020-07-23 13:00] VITALS: BP 100/70
--- NOTE | 2020-07-23 13:31 | NUR ---
CM INFORMED DURING PRIME ROUNDING OF THE PLAN OF CARE FOR THE PT. PLAN FOR PT TO POSSIBLY D/C TODAY PENDING SX DECISION. PT MAY NEED O2 AT D/C. PT CURRENTLY ON 3L O2, AND WILL NEED R.T. REST AND EXERCISE TO DETERMINE HOME O2 NEEDS. CM WILL REMAIN AVAILABLE TO ASSIST AND FOLLOW NEEDED.
[2020-07-23 15:47] VITALS: BP 113/70
[2020-07-23 18:11] VITALS: BP 113/70
== END 2020-07-23 19:00 | disposition home or self-care (01) | DRG 353 ==
LOC: M.SUR 08:33 → M.2W 12:11 → M.TBA 12:11 → M.SUR 13:37 → M.2W 17:07
PROVIDERS: ADMIT Surgery; ATTEND Surgery
PROC: 0WUF0JZ Supplement Abdominal Wall with Synthetic Substitute, Open Approach (ICD-10-PCS; principal; 2020-07-20)
PROC: 5A0935A Assistance with Respiratory Ventilation, Less than 24 Consecutive Hours, High Flow/Velocity Cannula (ICD-10-PCS; 2020-07-21)
PROC: 5A0935A Assistance with Respiratory Ventilation, Less than 24 Consecutive Hours, High Flow/Velocity Cannula (ICD-10-PCS; 2020-07-22)
DX: K43.2 Incisional hernia without obstruction or gangrene (principal); J96.91 Respiratory failure, unspecified with hypoxia; J44.9 Chronic obstructive pulmonary disease, unspecified; Z79.899 Other long term (current) drug therapy